=== PATIENT | male | born 1995 | race Caucasian/White ===

== ENCOUNTER 2023-10-27 20:32 | Emergency (ER) | payer BC, SELFPAY ==
--- NOTE | ~2023-10-27 | XR_ITS ---
PA, oblique, and lateral views of the right index finger Clinical HISTORY: Laceration, foreign body FINDINGS: No fracture or dislocation seen. Joint spaces are preserved. Soft tissues are unremarkable. No radiopaque foreign body seen. IMPRESSION: Unremarkable exam. No radiopaque foreign body seen. Reviewed, dictated and finalized at [facility]. [employer]
[2023-10-27 20:33] VITALS: BP 103/40; PULSE 52; RESP 20; TEMP 36.4; O2SAT 97
--- NOTE | 2023-10-27 20:54 | ED.WOUNDLAC ---
HPI - Wound/Laceration General Chief Complaint: Wound/Laceration Stated Complaint: Right index finger lac Time Seen by Provider: 10/27/23 20:38 Source: patient Mode of arrival: ambulatory Limitations: no limitations History of Present Illness HPI narrative: Patient is a 28-year-old male who presents the ED with report of laceration to his right 2nd digit. Patient reports he was drinking wine out of a stemless wine glass when the glass broke and he sustained a laceration to his proximal right 2nd digit from the glass. No other injuries. Patient did have a near syncopal episode after the incident, states he often experiences this with the sight of blood. He denies any further nausea, lightheadedness, dizziness. Denies numbness/tingling. Tetanus up-to-date. Related Data Allergies Allergy/AdvReac Type Severity Reaction Status Date / Time No Known Allergies Allergy Verified 10/27/23 20:37 Review of Systems Review of Systems: CONSTITUTIONAL: Denies fever, chills, or sweats. SKIN: See HPI NEUROLOGIC: See HPI All systems reviewed & are unremarkable except as noted in HPI and below Exam Narrative: GENERAL: Well appearing, well-nourished, non-toxic, in no acute distress. HEAD: Normocephalic, atraumatic. RESPIRATORY: Airway patent, respirations nonlabored. CARDIOVASCULAR: Regular rate and rhythm. MUSCULOSKELETAL: Moves all extremities. No gross deformities. Full ROM of R 2nd digit. Sensation intact. Capillary refill intact. SKIN: Warm, dry, normal color. 0.5cm horizontal laceration through proximal R 2nd digit flexor surface, just distal from MCP joint. No active bleeding. NEURO: A&O X3. Speech clear. PSYCHIATRIC: Appropriate mood and affect. Normal interaction. Course Vital Signs Vital signs: Vital Signs Temperature 97.5 F L 10/27/23 20:33 Pulse Rate 52 L 10/27/23 20:33 Respiratory Rate 20 10/27/23 20:33 Blood Pressure 103/40 L 10/27/23 20:33 Pulse Oximetry 97 10/27/23 20:33 Oxygen Delivery Room Air 10/27/23 20:33 Temperature 97.5 F L 10/27/23 20:33 Pulse Rate 65 10/27/23 22:07 Respiratory Rate 14 10/27/23 22:07 Blood Pressure 118/74 10/27/23 22:07 Pulse Oximetry 99 10/27/23 22:07 Oxygen Delivery Room Air 10/27/23 20:33 Procedures Laceration Laceration 1: Date: 10/27/23 Time: 21:20 Site: hand (2nd digit) Side (If applicable): right Size (cm): 0.5 Description: linear Depth: simple, single layer Local Anesthetic: lidocaine 1% Amount of anesthesia used (mL): 5 Pre-repair: wound explored, irrigated and irrigated extensively ====== Skin Level ====== Skin layer closed with: nylon Size (cm): 5-0 Number of sutures: 2 Technique: simple, interrupted ====== Subcutaneous Layer ====== ====== Muscle Layer ====== ====== Tendon Layer ====== MDM - Wound/Laceration MDM Narrative Medical decision making narrative: XR w/o evidence of FB/osseous involvement. Lac repaired w/o complications. Tetanus UTD. Patient given wound care instructions and reasons to return. Discharged in stable condition. No further lightheadedness/near syncopal symptoms throughout ED stay. Medical Records Attestation: I reviewed the patient's medical records. Imaging Data Attestation: I personally reviewed and interpreted this imaging study as follows: Radiologist's impression: ITS Impressions Finger X-Ray 10/27/23 21:21 IMPRESSION: Unremarkable exam. No radiopaque foreign body seen. Discharge Plan Discharge Clinical Impression: Laceration of finger of right hand Qualifiers: Encounter type: initial encounter Finger: index finger Damage to nail status: without damage Foreign body presence: without foreign body Qualified Code(s): S61.210A - Laceration without foreign body of right index finger without damage to nail, initial encounter Patient Disposition: [facility]
[2023-10-27] MEDS: LIDOCAINE HCL 1% LOCAL INJ 10 ML VIAL 5 ML INFILTRATE (21:34)
--- NOTE | 2023-10-27 22:06 | PC.NURSE ---
Right second digit laceration. Bleeding controlled. Post suture, pt's wound dressed with bandaid. Discussed with pt care of wound and RTR.
[2023-10-27 22:07] VITALS: BP 118/74; PULSE 65; RESP 14; O2SAT 99
== END 2023-10-27 22:09 | disposition home or self-care (01) ==
LOC: ANHED 21:45
PROVIDERS: Emergency Provider Physician Assistant
DX: S61.210A Laceration without foreign body of right index finger without damage to nail, initial encounter (principal); W25.XXXA Contact with sharp glass, initial encounter
CPT/HCPCS: 12001; 73140; 99283